=== PATIENT | male | born 1960 | race Caucasian/White ===

== ENCOUNTER 2017-07-05 09:47 | Inpatient (IN) | payer OTHER, MEDICAID ==
[2017-07-05] MEDS ORDERED: ETOMIDATE 40 MG/20 ML INJ IVP ONE (09:50)
[2017-07-05] MEDS ORDERED: SUCCINYLCHOLINE CHLORIDE 200 MG/10 ML SYR IVP ONE ×2 (09:55→12:15)
[2017-07-05] MEDS ORDERED: PROPOFOL/EMULSION 1,000 MG/100 ML BOTTLE IV ONE (09:59)
[2017-07-05] MEDS ORDERED: PROPOFOL 200 MG/20 ML VIAL IVP ONE (10:05)
[2017-07-05] MEDS ORDERED: MIDAZOLAM 2 MG/2 ML VIAL IVP ONE ×2 (10:06→10:09)
--- NOTE | 2017-07-05 10:06 | CPEKG ---
Heart Rate: 107 RR Interval: 561 P-R Interval: 160 QRSD Interval: 78 QT Interval: 328 QTC Interval: 438 P [place]: 44 QRS [place]: 42 T Wave [place]: 42 EKG Severity - OTHERWISE NORMAL ECG - EKG Impression: SINUS TACHYCARDIA Electronically Signed By: Mirta Sánchez 06-Jul-2017 15:16:12
[2017-07-05] MEDS: PROPOFOL/EMULSION 100 ML IV SCH ×5 (10:10→16:55)
[2017-07-05] MEDS ORDERED: PROPOFOL/EMULSION 100 ML IV SCH (10:10)
[2017-07-05] MEDS ORDERED: fentaNYL 100 MCG/2 ML INJ IVP ONE (10:10)
[2017-07-05 10:25] LABS: PLATELET COUNT 247 10^3/uL (150-400)
--- NOTE | 2017-07-05 10:29 | EDPHY ---
H & P Time Seen by Provider: 07/05/17 10:00 HPI/ROS: CHIEF COMPLAINT: Altered mental status, shortness of breath HISTORY OF PRESENT ILLNESS: Patient is a 66-year-old male brought in by EMS with altered mental status and respiratory distress. EMS reports that they were called to the patient's bedside at [facility]. There were called to place an IV. A physician was at bedside. When EMS evaluated the patient he felt that he was altered and had significant distress. It was subsequent recommended that they transport the patient to the emergency department. In route patient tolerated non-rebreather mask. They were unable to perform BiPAP due to the patient's altered mental status. Patient is unable to give history. He has a fair amount of respiratory distress on exam. REVIEW OF SYSTEMS: Unable to obtain due the patient's condition and mental status Past Medical/Surgical History: Includes psychotic disorder with delusions, traumatic brain injury, hemiplegia, coronary disease, diabetes type 2, hypertension, hypothyroidism, poor coordination, dysphagia, depression, hyperlipidemia, edema Social history: The patient is a prison resident Smoking Status: Never smoked Physical Exam: Vitals noted. Hypertensive. GENERAL: Moderate acute respiratory distress, alert. Decreased mental status. Unable to answer questions. HEENT: Eyes normal to inspection, normal pharynx, no signs of dehydration. NECK: [No thyromegaly, no lymphadenopathy, supple. Old tracheostomy scar RESPIRATORY: Diffuse rales and rhonchi. Decreased breath sounds at the bases. CVS: Tachycardia with regular rhythm, no rubs, murmurs, or gallops. ABDOMEN: Soft, nontender, nondistended, no organomegaly. BACK: Normal to inspection, no CVA tenderness. SKIN: Normal color, no rash, warm, dry. No pallor. EXTREMITIES: No pedal edema, mild red discoloration to both calf. This has a crisp demarcation at his sock line. This is similar in appearance to summer. No calf tenderness, no Homans sign or cords, no joint swelling. NEURO/PSYCH: Lethargic. Moves all extremities spontaneously. Constitutional: Initial Vital Signs Temperature (C) 37 C 07/05/17 09:54 Heart Rate 111 H 07/05/17 09:54 Respiratory Rate 28 H 07/05/17 09:54 Blood Pressure 132/95 H 07/05/17 09:54 O2 Sat (%) 98 03/30/18 09:54 O2 Delivery Mode Ventilator O2 (L/minute) 15 Allergies/Adverse Reactions: Penicillins Allergy (Unknown, Verified 05/01/15 09:56) amoxicillin Allergy (Verified 05/01/15 09:56) AMOXIC Allergy (Uncoded 04/20/14 18:27) Home Medications: Medication Instructions Recorded Acetaminophen [Tylenol 325mg (*)] 650 mg PO Q6 PRN 07/05/17 Aspirin [Aspirin 81mg (*)] 81 mg PO DAILY 07/05/17 Atorvastatin Calcium [Lipitor 10 10 mg PO MWF 07/05/17 mg (*)] Clopidogrel Bisulfate [Plavix (*)] 75 mg PO DAILY 07/05/17 Ergocalciferol [Vitamin D2 (*)] 50,000 unit PO Q30D 07/05/17 Escitalopram Oxalate [Lexapro] 20 mg PO DAILY 07/05/17 Furosemide [Lasix 20 MG (*)] 20 mg PO DAILY 07/05/17 Insulin Glargine [Lantus 100 34 units SC DAILY 07/05/17 UNITS/ML (*)] Insulin Lispro [Humalog] 6 unit SQ TID 07/05/17 Ipratropium/Albuterol [Duoneb (*)] 3 ml IH Q4HRS PRN 07/05/17 Levothyroxine [Synthroid 25 mcg 37.5 mcg PO DAILY06 07/05/17 (*)] Lisinopril [Zestril 10 mg (*)] 10 mg PO DAILY 07/05/17 Mag Hydrox/Aluminum Hyd/Simeth 30 ml PO Q4HRS PRN 07/05/17 [Alum-Mag Hydroxide-Simeth Liq] Magnesium Hydroxide [Milk of 30 ml PO DAILY 07/05/17 Magnesia] Metoprolol Tartrate [Lopressor 50 50 mg PO BID 07/05/17 mg (*)] [place]-3 Fatty Acids [Fish Oil 1000 1,000 mg PO DAILY 07/05/17 mg (*)] [place]-3 Fatty Acids [Fish Oil 1000 1,000 mg PO DAILY 07/05/17 mg (*)] Polyvinyl Alcohol [Artificial 2 drop EACHEYE BID 07/05/17 Tears] Selenium Sulfide [Selsun Blue] 1 apollo TP TUSA 07/05/17 Sodium Chloride 0.9% 75 ml IV CONT 07/05/17 glipiZIDE XL [Glucotrol XL 10 MG 15 mg PO DAILY 07/05/17 (*)] lamoTRIgine [LamICTAL 100 MG (*)] 100 mg PO BID 07/05/17 metFORMIN HCL [Glucophage 1000 mg] 1,000 mg PO BIDMEAL 07/05/17 risperiDONE [Risperdal 1mg (*)] 2 mg PO BID 07/05/17 traMADol [Ultram 50 mg (*)] 25 mg PO TID 07/05/17 Medical Decision Making - Diagnostics EKG Interpretation: EKG shows sinus tachycardia at 107, normal axis, normal intervals]. There are no ST or T-wave abnormalities. Imaging Results: Imaging Impressions Chest X-Ray 07/05/17 10:03 Impression: Moderate edema versus pneumonia. 2. Good position of the ET tube. 3. NG tube in the distal esophagus. Results discussed with Dr. Sánchez at 10:19 AM. ED Course/Re-evaluation: In the emergency department I met EMS on arrival. I took report from the five roll refiner batch mixer. During my initial assessment of the patient I felt he was altered and unable to protect his airway. He had moderate respiratory distress. Because of this the plan for intubation. The patient was preoxygenated with a non-rebreather mask as well as a nasal cannula. Deep [place] suctioning was performed by Respiratory therapy. Laboratory studies and EKG were ordered. Prior to intubation the patient's and saturation was 99% Please refer my procedure note. The patient was intubated with a 7.5 ET tube under direct laryngoscopy. Post intubation the patient had good capnometry change and his oxygen saturation was in the 90s. I consulted Respiratory therapist and adjusted ventilator settings. Chest x-ray: Bedside chest x-ray revealed diffuse pulmonary edema versus infiltrate. The heart is normal size. ET tube is in good placement. Patient was sedated with propofol 40 mg IV bolus and then a propofol drip post intubation. Patient had mild movement with the event and was given Versed 1 mg IV x2. Patient was also given fentanyl 100 mcg IV for sedation and pain control post intubation. Patient's white count was elevated at 15. His lactic acidosis was elevated at 6.7. His chemistry panel revealed an elevated glucose of 300. The patient was given Levaquin 750 mg IV for possible pneumonia/sepsis. I discussed the case with the hospitalist service. The patient will be admitted to the ICU. base excess -8.7 I rechecked on numerous occasions. The patient did have an episode of drop in his blood pressure. Because of this is propofol was turned down. On recheck the patient's pressure had stabilized. He had no new complaints. He tolerated the ventilator well. Differential Diagnosis: My differential includes but is not limited to pneumonia, bacteremia, sepsis, CHF, pulmonary edema, ARDS, PE Critical Care Time: Patient required 45 min of critical care time. This was exclusive of any unbundled procedure. This was due the patient's altered mental status, respiratory distress, abnormal x-ray and labs, need for intubation, frequent rechecks, time spent at the bedside, and consultation with Internal Medicine. - Data Points Laboratory Results: Laboratory Results 07/05/17 10:00 07/05/17 10:00 07/05/17 07/05/17 07/05/17 10:35 10:20 10:00 WBC RBC Hgb POC Hgb Hct POC Hct MCV MCH MCHC RDW Plt Count MPV Neut % (Auto) Lymph % (Auto) [place] % (Auto) Eos % (Auto) Baso % (Auto) Nucleat RBC Rel Count Absolute Neuts (auto) Absolute Lymphs (auto) Absolute Monos (auto) Absolute Eos (auto) Absolute Basos (auto) Absolute Nucleated RBC Immature Gran % Immature Gran # PT INR APTT Puncture Site LEFT RADIAL Patient Temperature 37.6 DEGREES DEGREES pCO2 39 mmHg H mmHg (34-38) pO2 124 mmHg H mmHg (65-75) Total CO2 18 mEq/L L mEq/L (23-27) ABG pH 7.27 L (7.35-7.45) ABG PO2/FiO2 Ratio 248 RATIO RATIO ABG HCO3 17 mEq/L L mEq/L (22-26) ABG O2 Saturation 98 % H % (92-95) ABG Base Excess -8.7 mEq/L L mEq/L (-2.5-2.5) VBG Lactic Acid O2 Concentration % 50 % % (0-100) Actual Respiration Rate 21 Set Respiration Rate 12 SIMV YES Tidal Volume 600 End Tidal CO2 31 PEEP 5 POC Sodium Sodium 140 mEq/L mEq/L (135-145) POC Potassium Potassium 5.2 mEq/L mEq/L (3.5-5.2) POC Chloride Chloride 98 mEq/L mEq/L (97-110) Carbon Dioxide 21 mEq/l L mEq/l (22-31) Anion Gap 21 mEq/L H mEq/L (8-16) POC BUN BUN 19 mg/dL mg/dL (7-23) Creatinine 0.8 mg/dL mg/dL (0.7-1.3) POC Creatinine Estimated GFR > 60 Glucose 326 mg/dL H mg/dL (70-100) POC Glucose Calcium 9.0 mg/dL mg/dL (8.5-10.4) Total Bilirubin 0.9 mg/dL mg/dL (0.1-1.4) Conjugated Bilirubin 0.4 mg/dL mg/dL (0.0-0.5) Unconjugated Bilirubin 0.5 mg/dL mg/dL (0.0-1.1) AST 31 IU/L IU/L (17-59) ALT 41 IU/L IU/L (21-72) Alkaline Phosphatase 76 IU/L IU/L (38-126) Total Protein 7.4 g/dL g/dL (6.3-8.2) Albumin 4.6 g/dL g/dL (3.5-5.0) Lipase 30 IU/L IU/L (23-300) Urine Color YELLOW Urine Appearance CLEAR Urine pH 7.0 (5.0-7.5) Ur Specific [place] 1.015 (1.002-1.030) Urine Protein 1+ H (NEGATIVE) Urine Ketones 1+ H (NEGATIVE) Urine Blood NEGATIVE (NEGATIVE) Urine Nitrate NEGATIVE (NEGATIVE) Urine Bilirubin NEGATIVE (NEGATIVE) Urine Urobilinogen NEGATIVE EU EU (0.2-1.0) Ur Leukocyte Esterase NEGATIVE (NEGATIVE) Urine RBC 1-3 /hpf /hpf (0-3) Urine WBC 1-3 /hpf /hpf (0-3) Ur Epithelial Cells NONE SEEN /lpf /lpf (NONE-1+) Hyaline Casts 1-5 /lpf /lpf (0-1) Urine Glucose 3+ H (NEGATIVE) 07/05/17 07/05/17 07/05/17 10:00 10:00 10:00 WBC 15.36 10^3/uL H 10^3/uL (3.80-9.50) RBC 5.66 10^6/uL 10^6/uL (4.40-6.38) Hgb 16.1 g/dL g/dL (13.7-17.5) POC Hgb Hct 47.7 % % (40.0-51.0) POC Hct MCV 84.3 fL fL (81.5-99.8) MCH 28.4 pg pg (27.9-34.1) MCHC 33.8 g/dL g/dL (32.4-36.7) RDW 14.1 % % (11.5-15.2) Plt Count 247 10^3/uL 10^3/uL (150-400) MPV 9.1 fL fL (8.7-11.7) Neut % (Auto) 81.0 % H % (39.3-74.2) Lymph % (Auto) 9.5 % L % (15.0-45.0) Crook % (Auto) 8.9 % % (4.5-13.0) Eos % (Auto) 0.0 % L % (0.6-7.6) Baso % (Auto) 0.1 % L % (0.3-1.7) Nucleat RBC Rel Count 0.0 % % (0.0-0.2) Absolute Neuts (auto) 12.43 10^3/uL H 10^3/uL (1.70-6.50) Absolute Lymphs (auto) 1.46 10^3/uL 10^3/uL (1.00-3.00) Absolute Monos (auto) 1.37 10^3/uL H 10^3/uL (0.30-0.80) Absolute Eos (auto) 0.00 10^3/uL L 10^3/uL (0.03-0.40) Absolute Basos (auto) 0.02 10^3/uL 10^3/uL (0.02-0.10) Absolute Nucleated RBC 0.00 10^3/uL 10^3/uL (0-0.01) Immature Gran % 0.5 % % (0.0-1.1) Immature Gran # 0.08 10^3/uL 10^3/uL (0.00-0.10) PT 14.0 SEC SEC (12.0-15.0) INR 1.06 (0.83-1.16) APTT 29.8 SEC SEC (23.0-38.0) Puncture Site Patient Temperature pCO2 pO2 Total CO2 ABG pH ABG PO2/FiO2 Ratio ABG HCO3 ABG O2 Saturation ABG Base Excess VBG Lactic Acid 6.7 mmol/L H mmol/L (0.7-2.1) O2 Concentration % Actual Respiration Rate Set Respiration Rate SIMV Tidal Volume End Tidal CO2 PEEP POC Sodium Sodium POC Potassium Potassium POC Chloride Chloride Carbon Dioxide Anion Gap POC BUN BUN Creatinine POC Creatinine Estimated GFR Glucose POC Glucose Calcium Total Bilirubin Conjugated Bilirubin Unconjugated Bilirubin AST ALT Alkaline Phosphatase Total Protein Albumin Lipase Urine Color Urine Appearance Urine pH Ur Specific [place] Urine Protein Urine Ketones Urine Blood Urine Nitrate Urine Bilirubin Urine Urobilinogen Ur Leukocyte Esterase Urine RBC Urine WBC Ur Epithelial Cells Hyaline Casts Urine Glucose 07/05/17 09:59 WBC RBC Hgb POC Hgb 16.7 gm/dL gm/dL (13.7-17.5) Hct POC Hct 49 % % (40-51) MCV MCH MCHC RDW Plt Count MPV Neut % (Auto) Lymph % (Auto) [place] % (Auto) Eos % (Auto) Baso % (Auto) Nucleat RBC Rel Count Absolute Neuts (auto) Absolute Lymphs (auto) Absolute Monos (auto) Absolute Eos (auto) Absolute Basos (auto) Absolute Nucleated RBC Immature Gran % Immature Gran # PT INR APTT Puncture Site Patient Temperature pCO2 pO2 Total CO2 ABG pH ABG PO2/FiO2 Ratio ABG HCO3 ABG O2 Saturation ABG Base Excess VBG Lactic Acid O2 Concentration % Actual Respiration Rate Set Respiration Rate SIMV Tidal Volume End Tidal CO2 PEEP POC Sodium 137 mEq/L mEq/L (135-145) Sodium POC Potassium 5.0 mEq/L mEq/L (3.3-5.0) Potassium POC Chloride 100 mEq/L mEq/L (97-110) Chloride Carbon Dioxide Anion Gap POC BUN 23 mg/dL mg/dL (7-23) BUN Creatinine POC Creatinine 0.8 mg/dL mg/dL (0.7-1.3) Estimated GFR Glucose POC Glucose 367 mg/dL H mg/dL (70-100) Calcium Total Bilirubin Conjugated Bilirubin Unconjugated Bilirubin AST ALT Alkaline Phosphatase Total Protein Albumin Lipase Urine Color Urine Appearance Urine pH Ur Specific [place] Urine Protein Urine Ketones Urine Blood Urine Nitrate Urine Bilirubin Urine Urobilinogen Ur Leukocyte Esterase Urine RBC Urine WBC Ur Epithelial Cells Hyaline Casts Urine Glucose Medications Given: Propofol (Diprivan 10 Mg/Ml (Premix)) 100 mls @ 0 mls/hr IV CONT BRANT; Titrate PRN Reason: Protocol Stop: 01/01/18 10:29 Last Admin: 07/05/17 11:12 Dose: 100 mls Levofloxacin/Dextrose (Levaquin 750 Mg (Premix)) 150 mls @ 100 mls/hr IV EDNOW ONE PRN Reason: Protocol Stop: 07/05/17 11:47 Last Admin: 07/05/17 11:04 Dose: 150 mls Discontinued Medications Etomidate (Etomidate) 20 mg IVP EDNOW ONE Stop: 07/05/17 09:51 Last Admin: 07/05/17 09:56 Dose: 20 mg Fentanyl (Sublimaze) 100 mcg IVP EDNOW ONE Stop: 07/05/17 10:11 Last Admin: 07/05/17 10:10 Dose: 100 mcg Midazolam HCl (Versed) 1 mg IVP EDNOW ONE Stop: 07/05/17 10:07 Last Admin: 07/05/17 10:06 Dose: 1 mg Midazolam HCl (Versed) 1 mg IVP EDNOW ONE Stop: 07/05/17 10:10 Last Admin: 07/05/17 10:09 Dose: 1 mg Propofol (Diprivan) 40 mg IVP EDNOW ONE Stop: 07/05/17 10:06 Last Admin: 07/05/17 10:10 Dose: 40 mg Succinylcholine Chloride (Quelicin) 100 mg IVP EDNOW ONE Stop: 07/05/17 09:56 Last Admin: 07/05/17 09:58 Dose: 100 mg Point of Care Test Results: 07/05/17 09:59 POC Sodium 137 POC Potassium 5.0 POC Chloride 100 POC BUN 23 POC Creatinine 0.8 POC Glucose 367 H Departure - Departure Disposition: [facility] In[facility] Acute Clinical Impression: Pneumonia Qualifiers: Pneumonia type: due to unspecified organism Laterality: right Lung location: unspecified part of lung Qualified Code(s): J18.9 - Pneumonia, unspecified organism Respiratory failure Qualifiers: Chronicity: unspecified Altered mental status Qualifiers: Altered mental status type: unspecified Qualified Code(s): R41.82 - Altered mental status, unspecified Condition: Fair
[2017-07-05 10:33] LABS: INR 1.06 (0.83-1.16)
[2017-07-05] MEDS ORDERED: ACETAMINOPHEN 650 MG SUPP PR PRN (11:17)
[2017-07-05] MEDS ORDERED: LORazepam 2 MG/ML INJ IVP PRN (11:17)
[2017-07-05] MEDS ORDERED: NS 1,000 ML IV SCH (11:30)
[2017-07-05] MEDS ORDERED: fentanYL/NACL/100 ML BAG IV ONE (12:13)
[2017-07-05] MEDS ORDERED: ETOMIDATE 40 MG/20 ML INJ ONE (12:14)
[2017-07-05] MEDS ORDERED: fentaNYL 100 MCG/2 ML INJ ONE (12:15)
[2017-07-05] MEDS ORDERED: MIDAZOLAM 2 MG/2 ML VIAL ONE (12:15)
[2017-07-05] MEDS ORDERED: NS 1,000 ML BAG *FOR SEPSIS ORDER SET ONLY IV ONE (14:00)
[2017-07-05] MEDS: fentaNYL/NACL 100 ML IV SCH (14:02)
[2017-07-05] MEDS ORDERED: ALTEPLASE 2 MG VIAL IVP PRN (14:12)
--- NOTE | 2017-07-05 15:15 | ECHO ---
[email or web address] [id number] Main: [phone] Fax: Transthoracic Echocardiogram Name: FELIPE JIMENEZ MR#: [id number] Study Date: 07/05/2017 Study Time: 12:31 PM Date of : 1960 Age: 56 year(s) Height: 170.2 cm (67 in.) Weight: 112.95 kg (249 lb.) BSA: 2.22 m2 Gender: Male Examination: Echo Indication: Respiratory Distress, Intubated Image Quality: Contrast: Requested by: Pawel Maradiaga BP: 135 mmHg/73 mmHg Heart Rate: Rhythm: Indication: Respiratory Distress, Intubated Procedure Staff [place] Operator: John Rodrigues RDCS Reading Physician: Suhas Paul MD Requesting Provider: Conclusions: This is technically limited echo due to lung interference. There is normal LV and RV function with evidence of pericardial fat. The EF is estimated at 50-60% . Measurements: Chambers Valvular Assessment AV/MV Valvular Assessment TV/PV Normal Normal Normal Name Value Range Name Value Range Name Value Range Ao Celina (MM): 3.2 cm (2.2 cm-3.7 cm) IVSd (MM): 1.6 cm (0.6 cm-0.9 cm) LVDd (MM): 5.9 cm (4.2 cm-5.9 cm) LVDs (MM): 4.4 cm (2 cm-3.8 cm) LVPWd (MM): 1.7 cm (0.6 cm-1 cm) LVEF (MM): 48 (>=55 %) Continued Measurements: Findings: Exam Comments: This is technically limited echo due to lung interference. There is normal LV and RV function with evidence of pericardial fat. The EF is estimated at 50-60% . Patient: FELIPE JIMENEZ Study Date: 07/05/2017 Page 1 of 2 12:31 PM (No Signature Object) Patient: FELIPE JIMENEZ Study Date: 07/05/2017 Page 2 of 2 12:31 PM [id number]
[2017-07-05 15:17] LABS: PLATELET COUNT 181 10^3/uL (150-400)
[2017-07-05] MEDS ORDERED: D50W 25 GM/50 ML SYR IVP PRN ×2 (15:23→17:13)
[2017-07-05] MEDS ORDERED: INSULIN REGULAR HUMAN 100 UNIT in NS 100 ML IV SCH ×2 (15:30→17:13)
--- NOTE | 2017-07-05 15:32 | GHP ---
[f rep st] HISTORY AND PHYSICAL DATE OF ADMISSION: 07/05/2017 REFERRING PHYSICIAN: Pawel Maradiaga MD REASON FOR REFERRAL: Evaluation and management of respiratory failure and sepsis. HISTORY: The patient is a 56-year-old male who is a resident of [place] due to history of traumatic brain injury and hemiplegia as well as other medical problems. The patient apparently developed respiratory distress and was transported to the emergency department. He was on a non-rebreather mask during transport, but when he arrived in the emergency department, he was felt to be in significant respiratory distress and was subsequently emergently intubated. He was then started on sedation and transported to the intensive care unit. No further history is available. PAST MEDICAL HISTORY: Psychotic disorder with delusions, traumatic brain injury with hemiplegia, coronary artery disease, diabetes, hypertension, hypothyroidism, and depression. MEDICATIONS: Medications at the time of admission include Ultram, Tylenol, Risperdal, Glucophage, Lopressor, Zestril, Synthroid, Lantus insulin, Lipitor, Glucotrol, DuoNeb, Humalog, Lexapro, Plavix, vitamin D, aspirin, and Lamictal. ALLERGIES: Penicillin. SOCIAL HISTORY: The patient has never smoked. He is a retirement resident. FAMILY HISTORY: Unobtainable. REVIEW OF SYSTEMS: Unobtainable. PHYSICAL EXAMINATION: GENERAL: The patient is intubated and sedated. VITAL SIGNS: His blood pressure is 119/70 with a heart rate of 83. He is afebrile. Oxygen saturations are 100% on oxygen. HEENT: Normocephalic and atraumatic. No icterus. NECK: No JVD. Trachea is midline. CHEST: Clear to auscultation. CARDIAC: Regular rate and rhythm without murmur. ABDOMEN: Soft , nontender. Bowel sounds are present. EXTREMITIES: No clubbing, cyanosis, or edema. NEURO: Patient has slight anisocoria with a left pupil that is slightly larger than his right. The left pupil is nonreactive. LABORATORY: Creatinine is 0.8, anion gap is 21, glucose is 326. Liver function tests are normal. Potassium is 5.2, sodium is 140. White blood count is 15.4 with a hemoglobin of 16.1. Arterial blood gas shows a pH of 7.27 with a pO2 of 124, CO2 of 39, and a bicarbonate of 17 on IMV with a rate of 12, a tidal volume of 600. Lactate is 6.6, down from 6.7. Chest x-ray shows a moderate edema versus diffuse pneumonia. Images reviewed by me. ASSESSMENT: 1. Sepsis. The patient has acute hypoxemic respiratory failure and an elevated lactate. Blood cultures and respiratory panel are pending. The patient has been started empirically on Levaquin. Since he is a chronic retirement resident, the addition of vancomycin would be appropriate. The patient is currently receiving his 3rd liter of intravenous fluids. 2. Acute respiratory failure. The patient is intubated. His initial blood gas demonstrates primarily a metabolic acidosis that hopefully will improve with fluids and treatment of his sepsis. 3. Diabetes. The patient's blood sugars are quite high here in the intensive care unit. 4. Traumatic brain injury. The patient's CT scan shows no acute changes, but he has extensive injury to the right hemisphere. RECOMMENDATIONS: 1. Recheck fluid responsiveness after IV fluids. 2. A PICC line will be placed. 3. Echocardiogram has been ordered and is pending. 4. Add vancomycin. 5. Decrease sedation. 6. Insulin drip will be started then transition to sliding scale insulin if the patient does well. /[id number]/MODL MTDD
--- NOTE | 2017-07-05 15:59 | PDGENHP ---
History and Physical - Chief Complaint AMS - History of Present Illness 56 yo M currently residing at [facility] with a history of psychotic disorder as well as TBI admitted with respiratory distress and AMS. Sounds like patient was having a hard time breathing at [place] and this became acutely worse in transport, he was also altered and concerns were raised that he was not able to protect his airway. He was urgently intubated in ER. At the time of my evaluation he is intubated and sedated and unresponsive. No further history was able to be obtained from the patient due to his mental status. History Information - Allergies/Home Medication List Allergies/Adverse Reactions: Penicillins Allergy (Unknown, Verified 05/01/15 09:56) amoxicillin Allergy (Verified 05/01/15 09:56) AMOXIC Allergy (Uncoded 04/20/14 18:27) Home Medications: Acetaminophen [Tylenol 325mg (*)] 650 mg PO Q6 PRN 07/05/17 [Last Taken Unknown] Aspirin [Aspirin 81mg (*)] 81 mg PO DAILY 07/05/17 [Last Taken Unknown] Atorvastatin Calcium [Lipitor 10 mg (*)] 10 mg PO MWF 07/05/17 [Last Taken Unknown] Clopidogrel Bisulfate [Plavix (*)] 75 mg PO DAILY 07/05/17 [Last Taken Unknown] Ergocalciferol [Vitamin D2 (*)] 50,000 unit PO Q30D 07/05/17 [Last Taken Unknown ] Escitalopram Oxalate [Lexapro] 20 mg PO DAILY 07/05/17 [Last Taken Unknown] Furosemide [Lasix 20 MG (*)] 20 mg PO DAILY 07/05/17 [Last Taken Unknown] Insulin Glargine [Lantus 100 UNITS/ML (*)] 34 units SC DAILY 07/05/17 [Last Taken Unknown] Insulin Lispro [Humalog] 6 unit SQ TID 07/05/17 [Last Taken Unknown] Ipratropium/Albuterol [Duoneb (*)] 3 ml IH Q4HRS PRN 07/05/17 [Last Taken Unknown] Levothyroxine [Synthroid 25 mcg (*)] 37.5 mcg PO DAILY06 07/05/17 [Last Taken Unknown] Lisinopril [Zestril 10 mg (*)] 10 mg PO DAILY 07/05/17 [Last Taken Unknown] Mag Hydrox/Aluminum Hyd/Simeth [Alum-Mag Hydroxide-Simeth Liq] 30 ml PO Q4HRS PRN 07/05/17 [Last Taken Unknown] Magnesium Hydroxide [Milk of Magnesia] 30 ml PO DAILY 07/05/17 [Last Taken Unknown] Metoprolol Tartrate [Lopressor 50 mg (*)] 50 mg PO BID 07/05/17 [Last Taken Unknown] [place]-3 Fatty Acids [Fish Oil 1000 mg (*)] 1,000 mg PO DAILY 07/05/17 [Last Taken Unknown] [place]-3 Fatty Acids [Fish Oil 1000 mg (*)] 1,000 mg PO DAILY 07/05/17 [Last Taken Unknown] Polyvinyl Alcohol [Artificial Tears] 2 drop EACHEYE BID 07/05/17 [Last Taken Unknown] Selenium Sulfide [Selsun Blue] 1 apollo TP TUSA 07/05/17 [Last Taken Unknown] Sodium Chloride 0.9% 75 ml IV CONT 07/05/17 [Last Taken Unknown] glipiZIDE XL [Glucotrol XL 10 MG (*)] 15 mg PO DAILY 07/05/17 [Last Taken Unknown] lamoTRIgine [LamICTAL 100 MG (*)] 100 mg PO BID 07/05/17 [Last Taken Unknown] metFORMIN HCL [Glucophage 1000 mg] 1,000 mg PO BIDMEAL 07/05/17 [Last Taken Unknown] risperiDONE [Risperdal 1mg (*)] 2 mg PO BID 07/05/17 [Last Taken Unknown] traMADol [Ultram 50 mg (*)] 25 mg PO TID 07/05/17 [Last Taken Unknown] I have personally reviewed and updated: family history, medical history, social history, surgical history - Past Medical History coronary artery disease, diabetes type 2, hypertension, hyperlipidemia, psychiatric history (psychotic disorder) Additional medical history: TBI. hemiplegia - Surgical History Additional surgical history: unobtainable, not noted in EHR however surgical wound c/w prior trach - Family History Additional family history: unobtainable - Social History Smoking Status: Never smoked Additional social history: unobtainable, resides at [facility] Review of Systems Review of Systems: unobtainable 2/2 mental status Physical Exam Physical Exam: Temp Pulse Resp BP Pulse Ox 37.4 C 83 12 119/70 100 07/05/17 14:00 07/05/17 14:00 07/05/17 14:00 07/05/17 14:00 07/05/17 14:00 FIO2 (%) 60 Constitutional: not in pain, obese, unkempt Eyes: PERRL, No icteric sclera Ears, Nose, Mouth, Throat: moist mucous membranes, poor dentition, other (ETT in place) Cardiovascular: regular rate and rhythym, no murmur, rub, or gallop, edema Respiratory: inspiratory crackles, bronchial breath sounds Gastrointestinal: normoactive bowel sounds, soft, non-tender abdomen Genitourinary: no bladder tenderness, reis in urethra Skin: warm, normal color Musculoskeletal: no joint effusions, No asymmetric calves Neurologic: other (intubated and sedated) Psychiatric: other (intubated and sedated) Lab Data & Imaging Review 07/05/17 15:00 07/05/17 15:00 WBC 11.76 10^3/uL (3.80-9.50) H 07/05/17 15:00 RBC 4.23 10^6/uL (4.40-6.38) L 07/05/17 15:00 Hgb 12.2 g/dL (13.7-17.5) L 07/05/17 15:00 POC Hgb 16.7 gm/dL (13.7-17.5) 07/05/17 09:59 Hct 36.4 % (40.0-51.0) L D 07/05/17 15:00 POC Hct 49 % (40-51) 07/05/17 09:59 MCV 86.1 fL (81.5-99.8) 07/05/17 15:00 MCH 28.8 pg (27.9-34.1) 07/05/17 15:00 MCHC 33.5 g/dL (32.4-36.7) 07/05/17 15:00 RDW 14.4 % (11.5-15.2) 07/05/17 15:00 Plt Count 181 10^3/uL (150-400) D 07/05/17 15:00 MPV 9.1 fL (8.7-11.7) 07/05/17 15:00 Neut % (Auto) 79.0 % (39.3-74.2) H 07/05/17 15:00 Lymph % (Auto) 8.9 % (15.0-45.0) L 07/05/17 15:00 [place] % (Auto) 11.6 % (4.5-13.0) 07/05/17 15:00 Eos % (Auto) 0.0 % (0.6-7.6) L 07/05/17 15:00 Baso % (Auto) 0.1 % (0.3-1.7) L 07/05/17 15:00 Nucleat RBC Rel Count 0.0 % (0.0-0.2) 07/05/17 15:00 Absolute Neuts (auto) 9.29 10^3/uL (1.70-6.50) H 07/05/17 15:00 Absolute Lymphs (auto) 1.05 10^3/uL (1.00-3.00) 07/05/17 15:00 Absolute Monos (auto) 1.36 10^3/uL (0.30-0.80) H 07/05/17 15:00 Absolute Eos (auto) 0.00 10^3/uL (0.03-0.40) L 07/05/17 15:00 Absolute Basos (auto) 0.01 10^3/uL (0.02-0.10) L 07/05/17 15:00 Absolute Nucleated RBC 0.00 10^3/uL (0-0.01) 07/05/17 15:00 Immature Gran % 0.4 % (0.0-1.1) 07/05/17 15:00 Immature Gran # 0.05 10^3/uL (0.00-0.10) 07/05/17 15:00 PT 14.0 SEC (12.0-15.0) 07/05/17 10:00 INR 1.06 (0.83-1.16) 07/05/17 10:00 APTT 29.8 SEC (23.0-38.0) 07/05/17 10:00 Puncture Site LEFT RADIAL 07/05/17 10:35 Patient Temperature 37.6 DEGREES 07/05/17 10:35 pCO2 39 mmHg (34-38) H 07/05/17 10:35 pO2 124 mmHg (65-75) H 07/05/17 10:35 Total CO2 18 mEq/L (23-27) L 07/05/17 10:35 ABG pH 7.27 (7.35-7.45) L 07/05/17 10:35 ABG PO2/FiO2 Ratio 248 RATIO 07/05/17 10:35 ABG HCO3 17 mEq/L (22-26) L 07/05/17 10:35 ABG O2 Saturation 98 % (92-95) H 07/05/17 10:35 ABG Base Excess -8.7 mEq/L (-2.5-2.5) L 07/05/17 10:35 VBG Lactic Acid 3.5 mmol/L (0.7-2.1) H 07/05/17 15:45 O2 Concentration % 50 % (0-100) 07/05/17 10:35 Actual Respiration Rate 21 07/05/17 10:35 Set Respiration Rate 12 07/05/17 10:35 SIMV YES 07/05/17 10:35 Tidal Volume 600 07/05/17 10:35 End Tidal CO2 31 07/05/17 10:35 PEEP 5 07/05/17 10:35 POC Sodium 137 mEq/L (135-145) 07/05/17 09:59 Sodium 139 mEq/L (135-145) 07/05/17 15:00 POC Potassium 5.0 mEq/L (3.3-5.0) 07/05/17 09:59 Potassium 4.3 mEq/L (3.5-5.2) 07/05/17 15:00 POC Chloride 100 mEq/L (97-110) 07/05/17 09:59 Chloride 106 mEq/L (97-110) 07/05/17 15:00 Carbon Dioxide 22 mEq/l (22-31) 07/05/17 15:00 Anion Gap 11 mEq/L (8-16) 07/05/17 15:00 POC BUN 23 mg/dL (7-23) 07/05/17 09:59 BUN 17 mg/dL (7-23) 07/05/17 15:00 Creatinine 0.7 mg/dL (0.7-1.3) 07/05/17 15:00 POC Creatinine 0.8 mg/dL (0.7-1.3) 07/05/17 09:59 Estimated GFR > 60 07/05/17 15:00 Glucose 239 mg/dL (70-100) H 07/05/17 15:00 POC Glucose 278 mg/dL (70-100) H 07/05/17 13:58 Calcium 6.7 mg/dL (8.5-10.4) L D 07/05/17 15:00 Total Bilirubin 0.7 mg/dL (0.1-1.4) 07/05/17 15:00 Conjugated Bilirubin 0.3 mg/dL (0.0-0.5) 07/05/17 15:00 Unconjugated Bilirubin 0.4 mg/dL (0.0-1.1) 07/05/17 15:00 AST 18 IU/L (17-59) 07/05/17 15:00 ALT 33 IU/L (21-72) 07/05/17 15:00 Alkaline Phosphatase 42 IU/L (38-126) 07/05/17 15:00 Troponin I 0.070 ng/mL (0.000-0.034) H 07/05/17 15:00 NT-Pro-B Natriuret Pep 517 pg/mL (0-125) H 07/05/17 15:00 Total Protein 4.9 g/dL (6.3-8.2) L D 07/05/17 15:00 Albumin 2.8 g/dL (3.5-5.0) L D 07/05/17 15:00 Lipase 30 IU/L (23-300) 07/05/17 10:00 Urine Color YELLOW 07/05/17 10:20 Urine Appearance CLEAR 07/05/17 10:20 Urine pH 7.0 (5.0-7.5) 07/05/17 10:20 Ur Specific [place] 1.015 (1.002-1.030) 07/05/17 10:20 Urine Protein 1+ (NEGATIVE) H 07/05/17 10:20 Urine Ketones 1+ (NEGATIVE) H 07/05/17 10:20 Urine Blood NEGATIVE (NEGATIVE) 07/05/17 10:20 Urine Nitrate NEGATIVE (NEGATIVE) 07/05/17 10:20 Urine Bilirubin NEGATIVE (NEGATIVE) 07/05/17 10:20 Urine Urobilinogen NEGATIVE EU (0.2-1.0) 07/05/17 10:20 Ur Leukocyte Esterase NEGATIVE (NEGATIVE) 07/05/17 10:20 Urine RBC 1-3 /hpf (0-3) 07/05/17 10:20 Urine WBC 1-3 /hpf (0-3) 07/05/17 10:20 Ur Epithelial Cells NONE SEEN /lpf (NONE-1+) 07/05/17 10:20 Hyaline Casts 1-5 /lpf (0-1) 07/05/17 10:20 Urine Glucose 3+ (NEGATIVE) H 07/05/17 10:20 Visualized and Interpreted Chest x-ray results: Yes Chest X-Ray results: infiltrate (versus edema) Visualized and Interpreted imaging results: Yes Interpretation: head CT: nothing acute Visualized and Interpreted EKG results: Yes EKG additional interpertation: sinus tach Assessment & Plan Assessment: Pneumonia (Acute) Respiratory failure (Acute) Altered mental status (Acute) 56 yo M with hx of TBI presenting with AMS and acute hypoxic respiratory failure # Acute encephalopathy: baseline unknown though has hx of TBI, unable to protect airway due to MS change. Head CT without acute findings. Likely toxic metabolic in setting of sepsis. # sepsis: meeting SIRS with leukocytosis and tachycardia, presumed to be pulmonary as next, started on levofloxacin in ER, cultures drawn # acute hypoxic respiratory failure: now intubated, 2/2 presumably to combination of pna and AMS with diffuse bilateral infiltrate noted on CXR. Other consideration would be for PE. Echo limited but with normal RV function. Consider CTA if not improving. # Bilateral pna: cxr showing diffuse bilateral infilatrates, echo with normal EF and no clear suggestion of right heart failure as above. Given one dose of levofloxacin and will transition to vanc and cefepime for coverage of health care acquired organisms given patient resides in [place] # DM2/hyperglycemia: presume this is a stress response, started on insulin gtt and will transition to ssi when better controlled, will check A1c in am # elevated trop: currently 0.07, ecg non ischemic, suspect demand however will continue to trend trops, echo reassuring # dispo: IP status Patient new to my care. Old records reviewed and summarized as above. Care plan reviewed with ER doctor. > 60 min in critical care time spent in review of data and coordinating care.
[2017-07-05] MEDS: VANCOMYCIN 1.25 GM in NS 250 ML IV SCH (16:55)
[2017-07-05] MEDS ORDERED: NS 1,000 ML IV ONE (17:00)
[2017-07-05] MEDS ORDERED: D5W 1,000 ML IV SCH (17:13)
[2017-07-05] MEDS: CEFEPIME HCL 2 GM in STERILE WATER INJ 12.5 ML IV SCH (19:49)
[2017-07-05] MEDS: CHLORHEXIDINE GLUCONATE 15 ML UDL PO SCH (20:27)
[2017-07-05] MEDS: FAMOTIDINE 20 MG/NACL 50 ML IV SCH (21:12)
[2017-07-06] MEDS: VANCOMYCIN 1.25 GM in NS 250 ML IV SCH ×3 (00:12→16:33)
[2017-07-06] MEDS: PROPOFOL/EMULSION 100 ML IV SCH ×2 (00:22→08:03)
[2017-07-06] MEDS: fentaNYL/NACL 100 ML IV SCH (04:41)
[2017-07-06 05:02] LABS: PLATELET COUNT 159 10^3/uL (150-400)
[2017-07-06] MEDS: CEFEPIME HCL 2 GM in STERILE WATER INJ 12.5 ML IV SCH ×2 (06:26→17:25)
[2017-07-06] MEDS: ENOXAPARIN 40 MG/0.4 ML SYR SC SCH (08:03)
[2017-07-06] MEDS: CHLORHEXIDINE GLUCONATE 15 ML UDL PO SCH ×2 (08:03→20:12)
[2017-07-06] MEDS: FAMOTIDINE 20 MG/NACL 50 ML IV SCH (08:03)
[2017-07-06] MEDS: INSULIN GLARGINE 100 UNITS/ML UNIT SC SCH (09:12)
[2017-07-06] MEDS ORDERED: PNEUMOCOCCAL 0.5ML VACCINE VIAL IM ONE (09:45)
[2017-07-06] MEDS ORDERED: FLU VACC QS 2017-18 (3YR+)/PF 0.5 ML SYR (FLUARIX QUAD) IM ONE (09:45)
[2017-07-06] MEDS: LANSOPRAZOLE SUSP 30MG/10ML UDSYR (Adult) TUBE SCH (10:35)
[2017-07-06] MEDS ORDERED: MAGNESIUM SULF 2 GM/WATER 50 ML IV ONE (11:00)
--- NOTE | 2017-07-06 11:41 | PDINTPN ---
Director Of Institutional Giving Progress Note Assessment/Plan: Assessment: Sepsis: Afebrile, WBC down. On Cefepime/Vanco. Acute Respiratory Failure: Intubated. Had purulent sputum overnight, better this afternoon. Mild respiratory acidosis on vent while sedated, low O2 needs. CXR looks better. I>O, has some edema Diabetes: BSs low-mid 100s on Lantus and SSI. Hx TBI Plan: Sputum Cx. Continue empiric Cefepime/Vanco for now, stop Vanco if no resistant Gram positives by tomorrow. Will hold sedation and try to extubate today. Continue insulin and floow BSs. Dose of Lasix. 07/06/17 11:50 Subjective: Intubated, sedated Objective: Vital Signs Temp Pulse Resp BP Pulse Ox 37.5 C 78 29 H 127/62 H 100 07/06/17 11:00 07/06/17 11:31 07/06/17 11:31 07/06/17 11:00 07/06/17 11:31 Microbiology 07/05/17 14:20 Respiratory Panel (PCR) - Final Nasal, Sinus - Swab No Organism Detected Laboratory Results 07/06/17 04:45 07/06/17 04:45 07/05/17 07/06/17 07/07/17 05:59 05:59 05:59 Intake Total 6452.9 Output Total 2325 150 Balance 4127.9 -150 PT 14.0 SEC (12.0-15.0) 07/05/17 10:00 INR 1.06 (0.83-1.16) 07/05/17 10:00 Laboratory Tests 07/06/17 04:50 pCO2 44 H pO2 93 H Total CO2 24 ABG pH 7.33 L ABG PO2/FiO2 Ratio 233 ABG O2 Saturation 97 H O2 Concentration % 40 Actual Respiration Rate 12 Set Respiration Rate 12 Tidal Volume 600 CXR: Decreased basilar atelectasis. Images reviewed by me. Microbiology 07/05/17 14:20 Nasal, Sinus - Swab Respiratory Panel (PCR) - Final No Organism Detected Physical Exam - Physical Exam General Appearance: No alert EENT: normal ENT inspection, ET tube Neck: normal inspection Respiratory: lungs clear, normal breath sounds Cardiac/Chest: regular rate, rhythm, edema (1+) Abdomen: normal bowel sounds, non-tender, soft Skin: normal color, warm/dry Extremities: normal inspection Neuro/Psych: No alert ICD10 Worksheet Patient Problems: Problems Problem Status Onset Altered mental status Acute Pneumonia Acute Respiratory failure Acute Acute coronary syndrome Acute Chronic Disease Mgmt/Transitional Care Acute
[2017-07-06] MEDS ORDERED: FUROSEMIDE 40 MG/4 ML VIAL IVP ONE (11:52)
--- NOTE | 2017-07-06 14:49 | HOSPPROG ---
Hospitalist Progress Note Assessment/Plan: 56 yo M with hx of TBI presenting with AMS and acute hypoxic respiratory failure # Acute encephalopathy: improved overnight since extubation, ? if this may be related to intentional overdose given his suicidality and rapid improvement. Does have hx of severe TBI and so his baseline is likley not quite normal. # sepsis: meeting SIRS with leukocytosis and tachycardia, presumed to be pulmonary as next, started on levofloxacin in ER, cultures drawn # acute hypoxic respiratory failure: intubated and now extubated and doing well on RA, suspect this was largely driven by mental status # Bilateral pna: cxr showing diffuse bilateral infilatrates, improved overnight and more c/w atlectasis rather than pna, will continue to treat overnight and if continues to improve likely dc abx in am # DM2/hyperglycemia: presume this is a stress response, transitioned to sc insulin, A1c pending # elevated trop: peaekd at 0.07, ecg non ischemic, suspect demand however will continue to trend trops, echo reassuring # dispo: IP status >40 min spent in critical care of this patient including interpreting data, care plan reviewed with Dr. Josue and multidisciponarly care team Subjective: extubated this am and has been combative and espousing suicical ideation since extubation Objective: Vital Signs Temp Pulse Resp BP Pulse Ox 37.5 C 76 29 H 127/62 H 99 07/06/17 11:00 07/06/17 11:57 07/06/17 11:31 07/06/17 11:00 07/06/17 11:57 Microbiology 07/05/17 14:20 Respiratory Panel (PCR) - Final Nasal, Sinus - Swab No Organism Detected Laboratory Results 07/06/17 04:45 07/06/17 04:45 07/05/17 07/06/17 07/07/17 05:59 05:59 05:59 Intake Total 6452.9 Output Total 2325 150 Balance 4127.9 -150 PT 14.0 SEC (12.0-15.0) 07/05/17 10:00 INR 1.06 (0.83-1.16) 07/05/17 10:00 Constitutional: not in pain, obese, unkempt Eyes: PERRL, No icteric sclera Ears, Nose, Mouth, Throat: moist mucous membranes, poor dentition, Cardiovascular: regular rate and rhythym, no murmur, rub, or gallop, edema Respiratory: cta b to ant exam Gastrointestinal: normoactive bowel sounds, soft, non-tender abdomen Genitourinary: no bladder tenderness, reis in urethra Skin: warm, normal color Musculoskeletal: no joint effusions, No asymmetric calves Neurologic: oriented appropriate left sided paralysis Psychiatric: suicicdal aggressive ICD10 Worksheet Patient Problems: Problems Problem Status Onset Altered mental status Acute Pneumonia Acute Respiratory failure Acute Acute coronary syndrome Acute Chronic Disease Mgmt/Transitional Care Acute
[2017-07-06] MEDS: ACETAMINOPHEN 325 MG TAB PO PRN ×2 (14:57→20:08)
[2017-07-06] MEDS: risperiDONE 1 MG TAB PO SCH ×2 (16:29→20:10)
[2017-07-06] MEDS: ESCITALOPRAM OXALATE 10 MG TAB PO SCH (16:29)
--- NOTE | 2017-07-06 16:34 | ASMTCMCOM ---
CM Note CM Note Notes: Pt was admitted with AMS, dyspnea. He has a hx of psychotic d/o, TBI with L sided weakness, DM2, depression.. He has lived at [facility] for several years and is wheelchair bound. He has LTC Medicaid and Medicare. Per the RN at , pt is total care and requires a [facility] lift for transfers. He has a Trustee for a trust that was set up after pt's mother in 2012. The Trustee is Yovani Rapp [phone]. Spoke with him at length today - he emphasized he is not a FPOA. He also is not interested in being Juliano's medical proxy. He said there may be some cousins in [place] however they will have had no contact with pt for many years. Yovani will go through paperwork to find any phone numbers and will call CM tomorrow. Pt was extubated and began expressing suicidal ideation, was placed on an M1 hold and now has been medically cleared for a TLC eval. Anticipate pt will d/c back to [facility] when he's ready. Date Signed: 07/06/2017 04:34 PM Electronically Signed By:ANJELICA De Jesus
[2017-07-06] MEDS: INSULIN LISPRO 100 UNIT/ML SC SCH (17:25)
[2017-07-06] MEDS: FAMOTIDINE 20 MG TAB PO SCH (20:08)
[2017-07-06] MEDS: lamoTRIgine 100 MG TAB PO SCH (20:09)
[2017-07-06] MEDS: POLYVINYL ALCOHOL EACHEYE SCH (20:09)
[2017-07-07] MEDS: ACETAMINOPHEN 325 MG TAB PO PRN ×3 (01:16→13:07)
[2017-07-07] MEDS: LEVOTHYROXINE 25 MCG TAB PO SCH (05:36)
[2017-07-07] MEDS: CEFEPIME HCL 2 GM in STERILE WATER INJ 12.5 ML IV SCH ×2 (05:36→17:29)
[2017-07-07] MEDS ORDERED: VANCOMYCIN HCL/NORMAL SALINE 250 ML IV SCH (08:00)
[2017-07-07] MEDS: ENOXAPARIN 40 MG/0.4 ML SYR SC SCH (09:13)
[2017-07-07] MEDS: FAMOTIDINE 20 MG TAB PO SCH ×2 (09:14→21:22)
[2017-07-07] MEDS: CLOPIDOGREL BISULFATE 75 MG TAB PO SCH (09:14)
[2017-07-07] MEDS: risperiDONE 1 MG TAB PO SCH ×2 (09:14→21:22)
[2017-07-07] MEDS: lamoTRIgine 100 MG TAB PO SCH ×2 (09:14→21:22)
[2017-07-07] MEDS: ESCITALOPRAM OXALATE 10 MG TAB PO SCH (09:14)
[2017-07-07] MEDS: LANSOPRAZOLE SUSP 30MG/10ML UDSYR (Adult) TUBE SCH (09:14)
[2017-07-07] MEDS: INSULIN GLARGINE 100 UNITS/ML UNIT SC SCH (09:15)
[2017-07-07] MEDS: INSULIN LISPRO 100 UNIT/ML SC SCH ×3 (09:15→17:30)
--- NOTE | 2017-07-07 12:20 | HOSPPROG ---
Hospitalist Progress Note Assessment/Plan: 56 yo M with hx of TBI presenting with AMS and acute hypoxic respiratory failure # Acute encephalopathy: improved dramatically over the first night, ? if this may be related to intentional overdose given his suicidality and rapid improvement. Does have hx of severe TBI and so his baseline is not normal but likely now back to baseline # suicidal ideation: patient continues to state that he would like to kill himself and states he would do it be either slitting his throat or drowning himself in bath.Has been placed on M1 hold and will need TLC clearance prior to dc # sepsis: meeting SIRS with leukocytosis and tachycardia, presumed to be pulmonary as next, being treated with cefepime and vanc, blood cultures and resp pcr negative. Lactate quite elevated on admission so will continue cefepime alone today. # acute hypoxic respiratory failure: intubated and now extubated and doing well on RA, suspect this was largely driven by mental status # Bilateral pna: cxr showing diffuse bilateral infilatrates, f/u cxr improved. Dc'ed vanc but will continue cefepime with a plan to complete a 10 day course of abx. # DM2/hyperglycemia: presume this is a stress response, transitioned to sc insulin, A1c pending # elevated trop: peaekd at 0.07, ecg non ischemic, suspect demand however will continue to trend trops, echo reassuring # dispo: IP status care plan reviewed with Dr. Josue and multidisciplinary care team Subjective: no significant overnight events, continues to do well on RA, mentatoin stable and continues to espouse suicidality Objective: Vital Signs Temp Pulse Resp BP Pulse Ox 37.7 C 95 18 143/59 H 94 07/06/17 19:54 07/07/17 10:00 07/07/17 10:00 07/07/17 10:00 07/07/17 10:00 Microbiology 07/06/17 13:14 - Final Sputum, Induced/Suctioned Laboratory Results 07/06/17 04:45 07/06/17 04:45 07/06/17 07/07/17 07/08/17 05:59 05:59 05:59 Intake Total 6452.9 1007.9 Output Total 2325 2800 Balance 4127.9 -1792.1 PT 14.0 SEC (12.0-15.0) 03/30/18 10:00 INR 1.06 (0.83-1.16) 07/05/17 10:00 Constitutional: not in pain, obese, unkempt Eyes: PERRL, No icteric sclera Ears, Nose, Mouth, Throat: moist mucous membranes, poor dentition, Cardiovascular: regular rate and rhythym, no murmur, rub, or gallop, edema Respiratory: cta b to ant exam Gastrointestinal: normoactive bowel sounds, soft, non-tender abdomen Genitourinary: no bladder tenderness, reis in urethra Skin: warm, normal color Musculoskeletal: no joint effusions, No asymmetric calves Neurologic: oriented appropriate left sided paralysis Psychiatric: + suicidal ideation with plan ICD10 Worksheet Patient Problems: Problems Problem Status Onset Altered mental status Acute Pneumonia Acute Respiratory failure Acute Acute coronary syndrome Acute Chronic Disease Mgmt/Transitional Care Acute
--- NOTE | 2017-07-07 12:28 | PDINTPN ---
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 On Cefepime/Vanco Day #2 for HCAP. Probable pulmonary source Acute Respiratory Failure: Extubated 07/06. Cough, hypoxemia improved. CXR looks better. Diuresed some yesterday. Diabetes: BSs low-mid 100s on Lantus and SSI. Hx TBI Suicidal Ideation: Physical limitations make it challenging for placement but also for him to carry out actions. He's not expressed them today. Plan: Stop Vanco. Can probably change Cefepime to PO antibiotic tomorrow to complete a 7 day +/- course. Continue SS insulin and follow BSs. Will resume Glucotrol today. May start Glucophage tomorrow depending on BSs. Probably can transfer to floor. 07/07/17 12:40 Subjective: Feels OK, had some dysphagia but he report that this is better. Objective: Vital Signs Temp Pulse Resp BP Pulse Ox 37.7 C 95 18 143/59 H 94 07/06/17 19:54 07/07/17 10:00 07/07/17 10:00 07/07/17 10:00 07/07/17 10:00 Microbiology 07/06/17 13:14 - Final Sputum, Induced/Suctioned Laboratory Results 07/06/17 04:45 07/06/17 04:45 07/06/17 07/07/17 07/08/17 05:59 05:59 05:59 Intake Total 6452.9 1007.9 Output Total 2325 2800 Balance 4127.9 -1792.1 PT 14.0 SEC (12.0-15.0) 07/05/17 10:00 INR 1.06 (0.83-1.16) 07/05/17 10:00 Microbiology 07/06/17 13:14 Sputum, Induced/Suctioned - Final 07/05/17 14:20 Nasal, Sinus - Swab Respiratory Panel (PCR) - Final No Organism Detected 07/06/17 13:14 Sputum, Induced/Suctioned Sputum Culture - Preliminary Physical Exam - Physical Exam General Appearance: alert, no apparent distress EENT: normal ENT inspection Neck: normal inspection Respiratory: lungs clear, normal breath sounds Cardiac/Chest: regular rate, rhythm, No edema Abdomen: normal bowel sounds, non-tender Skin: warm/dry Extremities: non-tender Neuro/Psych: alert, No normal mood/affect (flat), No oriented x 3 ICD10 Worksheet Patient Problems: Problems Problem Status Onset Altered mental status Acute Pneumonia Acute Respiratory failure Acute Acute coronary syndrome Acute Chronic Disease Mgmt/Transitional Care Acute
[2017-07-07] MEDS: CHLORHEXIDINE GLUCONATE 15 ML UDL PO SCH ×2 (13:00→21:22)
[2017-07-07] MEDS: VANCOMYCIN 1.25 GM in NS 250 ML IV SCH (13:01)
[2017-07-07] MEDS: POLYVINYL ALCOHOL EACHEYE SCH ×2 (13:10→21:23)
[2017-07-07] MEDS: glipiZIDE XL 5 MG TAB PO SCH (13:17)
[2017-07-08] MEDS: ACETAMINOPHEN 325 MG TAB PO PRN ×2 (04:25→09:29)
[2017-07-08] MEDS: CEFEPIME HCL 2 GM in STERILE WATER INJ 12.5 ML IV SCH (05:33)
[2017-07-08] MEDS: LEVOTHYROXINE 25 MCG TAB PO SCH (05:33)
[2017-07-08 07:31] VITALS: BP 143/75; PULSE 86; RESP 16; TEMP 98.9; O2SAT 88
[2017-07-08] MEDS ORDERED: ATORVASTATIN CALCIUM 10 MG TAB PO SCH (08:00)
[2017-07-08] MEDS: lamoTRIgine 100 MG TAB PO SCH (09:29)
[2017-07-08] MEDS: ESCITALOPRAM OXALATE 10 MG TAB PO SCH (10:25)
[2017-07-08] MEDS: CLOPIDOGREL BISULFATE 75 MG TAB PO SCH (10:25)
[2017-07-08] MEDS: risperiDONE 1 MG TAB PO SCH (10:25)
[2017-07-08] MEDS: FAMOTIDINE 20 MG TAB PO SCH (10:25)
[2017-07-08] MEDS: glipiZIDE XL 5 MG TAB PO SCH (10:25)
[2017-07-08] MEDS: LANSOPRAZOLE SUSP 30MG/10ML UDSYR (Adult) TUBE SCH (10:26)
[2017-07-08] MEDS: INSULIN LISPRO 100 UNIT/ML SC SCH ×2 (10:26→12:11)
[2017-07-08] MEDS: CHLORHEXIDINE GLUCONATE 15 ML UDL PO SCH (10:27)
[2017-07-08] MEDS: ENOXAPARIN 40 MG/0.4 ML SYR SC SCH (10:27)
[2017-07-08] MEDS: POLYVINYL ALCOHOL EACHEYE SCH (10:28)
[2017-07-08] MEDS: INSULIN GLARGINE 100 UNITS/ML UNIT SC SCH (10:28)
--- NOTE | 2017-07-08 11:46 | PDDCSUM ---
Discharge Summary Discharge Summary: Dates of service 07/05-07/08/17 Consultations: pulmonary/critical care Procedures: endotracheal intubation Hospital course by problem: 56 yo M with hx of TBI and hemiplegia presenting with AMS and acute hypoxic respiratory failure # Acute encephalopathy: improved dramatically over the first night, ? if this may be related to intentional overdose given his suicidality and rapid improvement. Does have hx of severe TBI and so his baseline is not normal but likely now back to baseline # suicidal ideation: patient continues to state that he would like to kill himself and states he would do it be either slitting his throat or drowning himself in bath. Cleared by TLC for follow up at [facility] with psychiatry. # sepsis,POA due to aspiration pna: meeting SIRS with leukocytosis and tachycardia, presumed to be pulmonary as next, initially treated with vanc/ cefepime, resolved prior to dc # acute hypoxic respiratory failure: intubated and now extubated and doing well on RA, suspect this was largely driven by mental status with contribution of aspiration pna as next # Bilateral pna: cxr showing diffuse bilateral infilatrates suspect due to aspiration in setting of AMS, f/u cxr improved. Treated with cefepime in house and transitioned to levofloxacin at discharge. # DM2/hyperglycemia: presume this is a stress response, transitioned to sc insulin, A1c pending # elevated trop: peaekd at 0.07, ecg non ischemic, suspect demand however will continue to trend trops, echo reassuring # dispo: return to SNF Items for f/u: --psychiatric f/u given ongoing suicidal ideation, MD stated this could be arranged --ongoing mgmt of DM and other chronic medical issues DC to SNF > 35 min spent in dc of patient, more than half in coordination of care
--- NOTE | 2017-07-08 11:46 | PDIAF ---
- Diagnosis Code Status: Full Code - Medication Management Discharge Medications: Medications to Continue on Transfer Acetaminophen [Tylenol 325mg (*)] 650 mg PO Q6 PRN 07/05/17 [Last Taken Unknown] Aspirin [Aspirin 81mg (*)] 81 mg PO DAILY 07/05/17 [Last Taken Unknown] Atorvastatin Calcium [Lipitor 10 mg (*)] 10 mg PO MWF 07/05/17 [Last Taken Unknown] Clopidogrel Bisulfate [Plavix (*)] 75 mg PO DAILY 07/05/17 [Last Taken Unknown] Ergocalciferol [Vitamin D2 (*)] 50,000 unit PO Q30D 07/05/17 [Last Taken Unknown ] Escitalopram Oxalate [Lexapro] 20 mg PO DAILY 07/05/17 [Last Taken Unknown] Furosemide [Lasix 20 MG (*)] 20 mg PO DAILY 07/05/17 [Last Taken Unknown] Insulin Glargine [Lantus 100 UNITS/ML (*)] 34 units SC DAILY 07/05/17 [Last Taken Unknown] Insulin Lispro [Humalog] 6 unit SQ TID 07/05/17 [Last Taken Unknown] Ipratropium/Albuterol [Duoneb (*)] 3 ml IH Q4HRS PRN 07/05/17 [Last Taken Unknown] Levothyroxine [Synthroid 25 mcg (*)] 37.5 mcg PO DAILY06 07/05/17 [Last Taken Unknown] Lisinopril [Zestril 10 mg (*)] 10 mg PO DAILY 07/05/17 [Last Taken Unknown] Mag Hydrox/Aluminum Hyd/Simeth [Alum-Mag Hydroxide-Simeth Liq] 30 ml PO Q4HRS PRN 07/05/17 [Last Taken Unknown] Magnesium Hydroxide [Milk of Magnesia] 30 ml PO DAILY 07/05/17 [Last Taken Unknown] Metoprolol Tartrate [Lopressor 50 mg (*)] 50 mg PO BID 07/05/17 [Last Taken Unknown] [place]-3 Fatty Acids [Fish Oil 1000 mg (*)] 1,000 mg PO DAILY 07/05/17 [Last Taken Unknown] [place]-3 Fatty Acids [Fish Oil 1000 mg (*)] 1,000 mg PO DAILY 07/05/17 [Last Taken Unknown] Polyvinyl Alcohol [Artificial Tears] 2 drop EACHEYE BID 07/05/17 [Last Taken Unknown] Selenium Sulfide [Selsun Blue] 1 apollo TP TUSA 07/05/17 [Last Taken Unknown] Sodium Chloride 0.9% 75 ml IV CONT 07/05/17 [Last Taken Unknown] glipiZIDE XL [Glucotrol XL 10 MG (*)] 15 mg PO DAILY 07/05/17 [Last Taken Unknown] lamoTRIgine [LamICTAL 100 MG (*)] 100 mg PO BID 07/05/17 [Last Taken Unknown] metFORMIN HCL [Glucophage 1000 mg] 1,000 mg PO BIDMEAL 07/05/17 [Last Taken Unknown] risperiDONE [Risperdal 1mg (*)] 2 mg PO BID 07/05/17 [Last Taken Unknown] traMADol [Ultram 50 mg (*)] 25 mg PO TID 07/05/17 [Last Taken Unknown] levOFLOXACIN [Levofloxacin] 750 mg PO DAILY #5 tablet 07/08/17 [Last Taken Unknown] Discharge Medications: Refer to the Discharge Home Medication list for PRN reason. - Orders Services needed: Registered Nurse, Certified Tissue Technician, Master Manager Msw , Physical Therapy, Occupational Therapy Isolation Type: None Diet Texture: Dysphagia 3 - Advanced - Moist, Bite-Size, Thin Liquids, Meds Whole w/Liquids Weigh Patient: weekly Activity/Weight Bearing Restrictions: As tolerated Additional: Patient will need follow up with psychiatry for suicidal ideation. - Follow Up Care Current Providers and Referrals: Patient,NotPresent [Primary Care Provider] - As per Instructions
--- NOTE | 2017-07-08 12:27 | ASDISCHSUM ---
Discharge Information Plan Status:SNF Medically Cleared to Leave:07/08/2017 Discharge Date:07/08/2017 CM D/C Disposition:Detention Facility ADT D/C Disposition:Detention Facility Projected Discharge Date:07/08/2017 01:00 PM Transportation at D/C:Wheelchair Van Discharge Delay Reason: Follow-Up Date:07/08/2017 01:00 PM Discharge Slot: Final Diagnosis:Respiratory Failure, Sepsis, Hx TBI, Depression Placement Information Referral Type:*Senior Living/SNF Referral ID:[facility]-[id number] Provider Name:[facility] Address 1:[address] Address 2: City:[place] Selection Factors: State:[place] Patient Contact Information Contact Name:SMOOTHFORRESTTRELL Relationship:Other Address: Work Phone: City: [facility] Phone: State/Zip Code: Email: Financial Information Financial Class:Medicare Primary Plan Desc:MEDICARE INPATIENT Primary Plan Number:[id number] Secondary Plan Desc:[place] Secondary Plan Number:[id number] Assessment Information [facility] CM Progress Note CM Note CM Note Notes: Pt was admitted with AMS, dyspnea. He has a hx of psychotic d/o, TBI with L sided weakness, DM2, depression.. He has lived at [facility] for several years and is wheelchair bound. He has [facility] Medicaid and Medicare. Per the RN at , pt is total care and requires a [place] lift for transfers. He has a Trustee for a trust that was set up after pt's mother in 2012. The Trustee is Yovani Rapp [phone]. Spoke with him at length today - he emphasized he is not a FPOA. He also is not interested in being Juliano's medical proxy. He said there may be some cousins in [place] however they will have had no contact with pt for many years. Yovani will go through paperwork to find any phone numbers and will call CM tomorrow. Pt was extubated and began expressing suicidal ideation, was placed on an M1 hold and now has been medically cleared for a TLC eval. Anticipate pt will d/c back to [facility] when he's ready. Date Signed: 07/06/2017 04:34 PM Electronically Signed By:ANJELICA De Jesus Case Management Discharge Plan Note Case Management Discharge Discharge Order Complete? Answers: Yes Patient to Obtain Answers: Other Notes: [facility] Medications Transportation Arranged Answers: GET W/C Transport will Pick (Date 07/08/2017 01:15 PM & Time) Case Management Transport Answers: Yes Form Complete Faxed Final Orders Answers: Yes Discharge Comments Notes: [facility] contacted and can provide mental health counselling for patient. He is no longer talking about hurting himself and actually making future plans for when he gets back to [facility]. Date Signed: 07/08/2017 12:16 PM Electronically Signed By:Dalia Duarte LCSW Intervention Information
== END 2017-07-08 13:10 | DRG 871 ==
LOC: EDUNIT# → EEVIPCON 10:53 → F2N 11:58
PROVIDERS: ADMIT Internal Medicine; ATTEND Internal Medicine
PROC: 0BH17EZ Insertion of Endotracheal Airway into Trachea, Via Natural or Artificial Opening (ICD-10-PCS; principal; 2017-07-05)
PROC: 5A1935Z Respiratory Ventilation, Less than 24 Consecutive Hours (ICD-10-PCS; principal; 2017-07-05)
PROC: 02HV33Z Insertion of Infusion Device into Superior Vena Cava, Percutaneous Approach (ICD-10-PCS; 2017-07-05)
DX: A41.9 Sepsis, unspecified organism (principal); G93.41 Metabolic encephalopathy; J69.0 Pneumonitis due to inhalation of food and vomit; J96.01 Acute respiratory failure with hypoxia; R45.851 Suicidal ideations; E11.65 Type 2 diabetes mellitus with hyperglycemia; I10 Essential (primary) hypertension; E03.9 Hypothyroidism, unspecified; E78.5 Hyperlipidemia, unspecified; Z23 Encounter for immunization; Z88.0 Allergy status to penicillin; Z87.820 Personal history of traumatic brain injury
CPT/HCPCS: 82947-QW; 92526-GN; 92610-GN; 96374; 97161-GP; 97166-GO; 97530-GO; 97530-GP; 97535-GO; C1751; G0008; G0009; G8978-GP-CL; G8979-GP-CK; G8987-GO-CL; G8988-GO-CK; G8996-GN-CI; G8997-GN-CI; J0330; J0692; J1650; J1815; J1940; J1956; J2060; J2250; J2704; J3010; J3370; J3475